=== PATIENT | female | born 1985 | race Caucasian/White ===

== ENCOUNTER 2020-09-18 02:23 | Emergency (ER) | payer OTHER ==
[2020-09-18] MEDS ORDERED: ZOFRAN4 M1 PO (07:32)
== END 2020-09-18 07:48 | disposition home or self-care (01) ==
LOC: FER 02:23
DX: R51.9 Headache, unspecified (principal); R11.2 Nausea with vomiting, unspecified; U07.1 COVID-19
CPT/HCPCS: 70450; J1885; J2405; J7030